=== PATIENT | male | born 1965 | race African-American/Black ===

== ENCOUNTER 2025-06-02 13:58 | Inpatient (IN) | payer MEDICAID, OTHER ==
[~2025-06-02] VITALS: Ht 177.8 cm; Wt 95.8 kg
--- NOTE | 2025-06-02 14:19 | ED.PDOC ---
General HPI Comments 59 year old male PMHx seizure, CVA RT sided deficits, HTN presents to the ED with a chief complaint of hematuria onset today (06/02/25). Per EMS, patient had prostate surgery on 05/21/25, this morning began experiencing blood in urine. Home health nurse called 911 due to increased weakness and filling about 2 bags of urine, with blood. He is currently on eliquis. Patient is a poor historian. No other symptoms or modifying factors present at this time. Chief Complaint: Urinary Time Seen by MD: 14:10 Reviewed notes: Medications, Allergies Allergies: Coded Allergies: Penicillins (Verified Allergy, Unknown, 06/02/25) Information Source: Patient, Emergency Med Personnel Mode of Arrival: EMS Severity: Moderate Timing: Hours Duration: Since onset Prehospital treatment: None Onset: Spontaneous Symptoms: Hematuria History of: Other Location: None Penile discharge: None Modifying factors: None associated signs and symptoms: Hematuria Past Medical History PAST MEDICAL HISTORY: CVA (RT sided deficts), HTN, Seizures Surgical History (Other): prostate surgery Family History Family History: Reviewed,noncontributory to illness, No family hx of Cancer, No family hx of DM, No family hx of Heart dewayne, No family hx of HTN, No family hx ofKidney dewayne, No family hx of Liver dewayne, No family hx of Lung dewayne, No family hx of Stroke Social History Smoker: Non-Smoker Alcohol: Denies ETOH Use Drugs: Denies Drug Use Lives In: Home Constitutional: reports: weakness; denies: chills, diaphoresis, fatigue, fever, malaise, sweats, others EENTM: denies: blurred vision, double vision, ear bleeding, ear discharge, ear drainage, ear pain, ear ringing, eye pain, eye redness, hearing loss, mouth pain, mouth swelling, nasal discharge, nose bleeding, nose congestion, nose pain, photophobia, tearing, throat pain, throat swelling, voice changes, others Respiratory: denies: cough, hemoptysis, orthopnea, SOB at rest, shortness of breath, SOB with excertion, stridor, wheezing, others Cardiovascular: denies: chest pain, dizzy spells, diaphoresis, Dyspnea on exertion, edema, irregular heart beat, left arm pain, lightheadedness, palpitations, PND, syncope, others Gastrointestinal: denies: abdomen distended, abdominal pain, blood streaked bowels, constipated, diarrhea, dysphagia, difficulty swallowing, hematemesis, melena, nausea, poor appetite, poor fluid intake, rectal bleeding, rectal pain, vomiting, others Genitourinary: reports: hematuria; denies: burning, dysuria, flank pain, frequency, incontinence, penile discharge, penile sore, pain, testicle pain, testicle swelling, urgency, others Neurological: reports: weakness; denies: dizziness, fainting, headache, left sided numbness, left sided weakness, numbness, paresthesia, pre-existing deficit, right sided numbness, right sided weakness, seizure, speech problems, tingling, tremors, others Musculoskeletal: denies: back pain, gout, joint pain, joint swelling, muscle pain, muscle stiffness, neck pain, others Integumetry: denies: bruises, change in color, change in hair/nails, dryness, laceration, lesions, lumps, rash, wounds, others Allergic/Immunocompromised: denies: Difficulty Healing, Frequent Infections, Hives, Itching, others Hematologic/Lymphatic: denies: anemia, blood clots, easy bleeding, easy bruising, swollen glands, others Endocrine: denies: excessive hunger, excessive sweating, excessive thirst, excessive urination, flushing, intolerance to cold, intolerance to heat, unexplained weight gain, unexplained weight loss, others Psychiatric: denies: anxiety, bipolar disorder, depression, hopeless, panic disorder, schizophrenia, sleepless, suicidal, others All Other Systems: Reviewed and Negative Physical Exam General Appearance: No Apparent Distress, Normal HEENT: Normal ENT Inspection, Pharynx Normal, TMs Normal Neck: Full Range of Motion, Non-Tender, Normal, Normal Inspection Respiratory: Chest Non-Tender, Lungs Clear, No Accessory Muscle Use, No Respiratory Distress, Normal Breath Sounds Cardiovascular: No Edema, No JVD, No Murmur, No Gallop, Normal Peripheral Pulses, Regular Rate/Rhythm Breast Exam: Deferred Gastrointestinal: No Organomegaly, Non Tender, No Pulsatile Mass, Normal Bowel Sounds, Soft Genitalia: Deferred Pelvic: Deferred Rectal: Deferred Extremities: No calf tenderness, Normal capillary refill, Normal inspection, Normal range of motion, Non-tender, No pedal edema Musculoskeletal : Apperance: Normal 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 Was a procedure done?: No Differential Diagnosis Kidney stone (Female): N/A Kidney stone (Male): N/A Penile/Scrotal: N/A Urinary Problem (Male): Urethritis, UTI Urinary Problem (Female): N/A X-Ray, Labs, Meds, VS Vital Signs Date Time Temp Pulse Resp B/P (MAP) Pulse Ox O2 Delivery O2 Flow Rate FiO2 06/02/25 16:54 98.2 67 19 114/71 (85) 96 98.2 06/02/25 14:01 98.6 77 16 119/75 95 98.6 Lab Test 06/02/25 16:40 06/02/25 14:50 06/02/25 14:08 Range/Units Prothrombin Time Pending Prothrombin Time INR Pending Activated Partial Thromboplast Time Pending White Blood Count 5.8 4.4-10.8 10^3/uL Red Blood Count 4.75 4.5-5.90 10^6/uL Hemoglobin 13.0 L 13.5-17.5 g/dL Hematocrit 40.4 L 41.0-53.0 % Mean Corpuscular Volume 85.1 80.0-100.0 fL Mean Corpuscular Hemoglobin 27.4 L 28.0-32.0 pg Mean Corpuscular Hemoglobin Concent 32.2 32.0-36.0 g/dL Red Cell Distribution Width 16.4 H 11.8-14.3 % Platelet Count 155 140-450 10^3/uL Mean Platelet Volume 9.0 6.9-10.8 fL Neutrophils (%) (Auto) 65.8 37.0-80.0 % Lymphocytes (%) (Auto) 26.7 10.0-50.0 % Monocytes (%) (Auto) 4.6 0.0-12.0 % Eosinophils (%) (Auto) 2.2 0.0-7.0 % Basophils (%) (Auto) 0.7 0.0-2.0 % Neutrophils # (Auto) 3.8 1.6-8.6 10 ^3/uL Lymphocytes # (Auto) 1.6 0.4-5.4 10 ^3/uL Monocytes # (Auto) 0.3 0-1.3 10 ^3/uL Eosinophils # (Auto) 0.1 0-0.8 10 ^3/uL Basophils # (Auto) 0 0-0.2 10 ^3/uL Nucleated Red Blood Cells 0.1 % Sodium Level 138 136-145 mmol/L Potassium Level 3.3 L 3.5-5.1 mmol/L Chloride Level 102 98-107 mmol/L Carbon Dioxide Level 26 20-31 mmol/L Anion Gap 10 5-15 Blood Urea Nitrogen 9 9-23 mg/dL Creatinine 1.27 0.700-1.30 mg/dL Glomerular Filtration Rate Calc 66 >90 mL/min BUN/Creatinine Ratio 7.1 L 10.0-20.0 Serum Glucose 97 74-106 mg/dL Calcium Level 9.3 8.7-10.4 mg/dL Troponin I High Sensitivity 8 </=54 ng/L Urine Color Light-red Yellow Urine Clarity Turbid H Clear Urine pH 6.0 5.0-9.0 Urine Specific [place] 1.006 1.001-1.035 Urine Protein Trace H Negative Urine Ketones Negative Negative Urine Blood 3+ H Negative /uL Urine Nitrite Negative Negative Urine Bilirubin Negative Negative Urine Urobilinogen Normal Negative mg/dL Urine Leukocyte Esterase 3+ Negative /uL Urine RBC 4941 0 - 3 /hpf Urine Microscopic WBC 63 H 0-3 /HPF Urine Squamous Epithelial Cells None seen <5 /hpf Urine Bacteria Few H None Seen /hpf Urine Mucus Few None Seen Urine Glucose Normal Normal mg/dL Time of 1ST Reevaluation: 14:40 Reevaluation 1ST: Unchanged Patient Education/Counseling: Diagnosis, Treatment, Prognosis Family Education/Counseling: No Family Present SEPSIS Sepsis Screen Physician Orders PTPTT (06/02/25 14:08) Chest Portable (06/02/25 14:20) Vital Signs Date Time Temp Pulse Resp B/P (MAP) Pulse Ox O2 Delivery O2 Flow Rate FiO2 06/02/25 16:54 98.2 67 19 114/71 (85) 96 98.2 06/02/25 14:01 98.6 77 16 119/75 95 98.6 Laboratory Tests Test 06/02/25 14:50 White Blood Count 5.8 10^3/uL (4.4-10.8) Departure 1 Departure Time of Disposition: 17:05 (Patient with worsening hematuria and lower abdominal pain after recent prostate surgery. We will admit patient for further workup and expert consultation) Impression: Primary Impression: Hematuria Qualified Codes: R31.0 - Gross hematuria Additional Impression: Lower abdominal pain Disposition: 09 ADMITTED INPATIENT Admit to: Med Surg Condition: Serious Critical Care Note Critical Care Time?: No Stability Stability form required: No I personally scribed for PILY SUAREZ MD ([email or web address]) on 06/02/25 at 14:19. Electronically submitted by Amelia Delgadillo ([email or web address]). I personally scribed for PILY SUAREZ MD ([email or web address]) on 06/02/25 at 14:23. Electronically submitted by Amelia Delgadillo ([email or web address]). PILY SUAREZ MD Jun 02, 2025 14:19
--- NOTE | 2025-06-02 15:01 | DVH ---
AP portable chest CLINICAL INDICATION: hematuria, weakness FINDINGS: Heart size slightly enlarged with a left ventricular configuration. Aorta tortuous. No inf iltrates or effusions IMPRESSION: 1. No acute cardiopulmonary pathology
[2025-06-02 15:03] LABS: Hematocrit 40.4 % (41.0-53.0); Hemoglobin 13.0 g/dL (13.5-17.5); Mean Corpuscular Hemoglobin 27.4 pg (28.0-32.0); Mean Corpuscular Volume 85.1 fL (80.0-100.0); Nucleated Red Blood Cells % 0.1 %
[2025-06-02 15:23] LABS: Chloride 102 mmol/L (98-107); Sodium 138 mmol/L (136-145)
[2025-06-02 15:24] LABS: Anion Gap 10 (5-15); Calcium 9.3 mg/dL (8.7-10.4); Carbon Dioxide 26 mmol/L (20-31)
[2025-06-02 15:25] LABS: Potassium 3.3 mmol/L (3.5-5.1)
[2025-06-02 15:29] LABS: BUN/Creatinine Ratio 7.1 (10.0-20.0); Glucose 97 mg/dL (74-106)
[2025-06-02 15:35] LABS: Blood Urea Nitrogen 9 mg/dL (9-23)
[2025-06-02 15:38] LABS: Urine Protein, UAD TRACE (Negative)
[2025-06-02 17:15] LABS: INR 1.07 (0.9-1.15); Partial Thromboplastin Time 32.3 SEC (24.5-34.5); Prothrombin Time 11.3 sec (9.3-11.8)
[2025-06-02 18:47] VITALS: PULSE 61; O2SAT 96
[2025-06-02 19:25] VITALS: PULSE 64; RESP 16; O2SAT 98
[2025-06-02] MEDS ORDERED: ONDANSETRON HCL 4 MG/2 ML VIAL IV PRN (19:45)
[2025-06-02] MEDS ORDERED: ACETAMINOPHEN 325 MG TAB PO PRN (19:45)
[2025-06-02] MEDS ORDERED: HYDROcodone-ACET 5/325MG TAB PO PRN (19:45)
--- NOTE | 2025-06-02 20:16 | DVH ---
EXAM: CT CT AB PEL WO CON-NO ORAL OR IV INDICATION: hematuria TECHNIQUE: Volumetric multidetector CT images of the abdomen and pelvis were obtained without contras t. All CT scans at this facility use dose modulation, iterative reconstruction, and/or weight based d osing when appropriate to reduce radiation dose to as low as reasonably achievable. COMPARISON: None FINDINGS: [LOWER CHEST]: The partially visualized lung bases are clear without a pleural effusion. The cardiac size is normal without pericardial effusion. trace atelectasis in the right lung base. Prominent para -aortic presumed lymph node versus mass measuring 3 x 2.[address] of the chest wit h contrast. [LIVER]: Normal hepatic size without suspicious focal lesion. [GALLBLADDER AND BILIARY TREE]: No cholelithiasis. [SPLEEN]: Unremarkable. [PANCREAS]: Unremarkable. [ADRENAL GLANDS]: Unremarkable [KIDNEYS]: No hydronephrosis. Large abnormal right posterior kidney soft tissue attenuating mass benitez uring 5.4 x 4.8 cm concerning for renal cell carcinoma. Too small to characterize left exophytic kid efrain lesion measuring 0.7 cm. [BLADDER]: Decompressed. Possible area along the wall measuring 9 mm along the left anterolateral bl adder. Circumferential bladder wall thickening. [REPRODUCTIVE ORGANS]: Mild to moderate prostatomegaly. [BOWEL/MESENTERY]: Stomach is normal. No CT evidence of bowel obstruction. [id number] stool bur den with large amount of stool distention rectum. Correlate for constipation [ASCITES]: Absent [LYMPHADENOPATHY]: Abnormal retroperitoneal lymphadenopathy with dominant characteristic lymph node i n the retro caval station measuring 2.7 x 1.8 cm. [VASCULATURE]: No aneurysmal dilatation. [ABDOMINAL WALL]: Small fat containing left inguinal hernia [MUSCULOSKELETAL]: No acute fracture or aggressive focal osseous lesion. Multifocal degenerative wade ge of the visualized spine. left femoral hardware. Sclerosis /sclerotic lesion of S1 potentially bone island. No visualized lytic lesion however inconspicuous sclerotic lesions along bilateral posterior iliac bones concerning for metastatic disease (2-73). IMPRESSION: 1. Large right posterior kidney mass concerning for renal cell carcinoma. 2. Abnormal retroperitoneal lymphadenopathy concerning for metastatic disease. 3. Circumferential bladder wall thickening and possible area of mass along the left anterolateral omar dder wall. 4. Inconspicuous sclerotic lesions along bilateral posterior iliac bones concerning for metastatic di sease.
[2025-06-02] MEDS: POTASSIUM CHL 20 Meq TABLET PO ONE (20:23)
[2025-06-02] MEDS: ATORVASTATIN 20 MG TAB PO SCH (22:17)
[2025-06-02] MEDS: levETIRAcetam 500 MG TAB PO SCH (22:17)
--- NOTE | 2025-06-02 23:38 | DVHHP2 ---
History of Present Illness Reason for Visit: Blood in the urine History of Present Illness 59-year-old male presents for evaluation of bloody urine. 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 He reports a one day history of noticing blood in his urine. He reports undergoing prostate surg latia on 05/21/2025. Reports increased weakness with fatigue. Patient is currently on Eliquis. No chest pain or palpitations. Past Medical History CVA, hypertension, seizures Past Surgical History Prostate surgery Family History Noncontributory Smoke: No ALCOHOL: none Drugs: None Lives: with Family Review of Systems Review of Systems Review of systems are currently negative otherwise addressed in HPI. Allergies: Coded Allergies: Penicillins (Verified Allergy, Unknown, 06/02/25) Medications Current Medications Medications Dose Ordered Sig/Perlita Route Start Time Stop Time Status Last Admin Dose Admin Levetiracetam 500 mg BID PO 06/02/25 22:00 06/02/25 22:17 500 MG Hydralazine HCl 25 mg Q8HR PO 06/02/25 22:00 Levothyroxine Sodium 100 mcg QAM@0600 PO 06/03/25 06:00 Atorvastatin Calcium 40 mg HS PO 06/02/25 22:00 06/02/25 22:17 40 MG Allopurinol 100 mg DAILY PO 06/03/25 10:00 Ceftriaxone Sodium 50 ml @ 100 mls/hr DAILY@09 IV 06/03/25 09:00 Acetaminophen/ Hydrocodone Bitart 1 tab Q4HP PRN PO 06/02/25 19:45 Ondansetron HCl 4 mg Q4HP PRN IV 06/02/25 19:45 Acetaminophen 650 mg Q6HP PRN PO 06/02/25 19:45 Exam Vital Signs Vital Signs Date Time Temp Pulse Resp B/P (MAP) Pulse Ox O2 Delivery O2 Flow Rate FiO2 06/02/25 22:00 107/71 06/02/25 19:25 64 16 98 Nasal Cannula* 2 28 06/02/25 19:25 98.0 98.0 Exam Gen: 59-year-old male in mild distress. Skin: Warm, dry, normal color and texture, no rash. HEENT: Normocephalic atraumatic, mucous membranes moist and pink. Neck: Cervical and supraclavicular nodes normal without enlargement, trachea is midline, thyroid gland is normal without masses. Pulmonary: Clear to auscultation and percussion bilaterally. Cardiac: Regular rate and rhythm. No murmur Abdomen: Soft, nontender, nondistended, bowel sounds present all 4 quadrants, no guarding, no rigidity, no organomegaly. Extremities: No cyanosis, clubbing, no edema Neuro: Cranial nerves II through XII grossly intact, normal affect and speech, no focal motor deficits. Labs/Xrays ORDERING PHYSICIAN: PILY SUAREZ MD PROCEDURE(s): CXRP - CHEST PORTABLE REASON: hematuria, weakness ORDER NUMBER(s): [id number], ACCESSION NUMBER(s): [id number] AP portable chest CLINICAL INDICATION: hematuria, weakness FINDINGS: Heart size slightly enlarged with a left ventricular configuration. Aorta tortuous. No infiltrates or effusions IMPRESSION: 1. No acute cardiopulmonary pathology [facility]ING PHYSICIAN[facility] PROCED[facility]s): ABPL - CT AB PEL WO CON-NO ORAL OR IV REASON: hematuria ORDER NUMBER(s): [id number], ACCESSION NUMBER(s): [id number] EXAM: CT CT AB PEL WO CON-NO ORAL OR IV INDICATION: hematuria TECHNIQUE: Volumetric multidetector CT images of the abdomen and pelvis were obtained without contrast. All CT scans at this facility use dose modulation, iterative reconstruction, and/or weight based dosing when appropriate to reduce radiation dose to as low as reasonably achievable. COMPARISON: None FINDINGS: [LOWER CHEST]: The partially visualized lung bases are clear without a pleural effusion. The cardiac size is normal without pericardial effusion. trace atelectasis in the right lung base. Prominent para-aortic presumed lymph node versus mass measuring 3 x 2.[address] of the chest with contrast. [LIVER]: Normal hepatic size without suspicious focal lesion. [GALLBLADDER AND BILIARY TREE]: No cholelithiasis. [SPLEEN]: Unremarkable. [PANCREAS]: Unremarkable. [ADRENAL GLANDS]: Unremarkable [KIDNEYS]: No hydronephrosis. Large abnormal right posterior kidney soft tissue attenuating mass measuring 5.4 x 4.8 cm concerning for renal cell carcinoma. Too small to characterize left exophytic kidney lesion measuring 0.7 cm. [BLADDER]: Decompressed. Possible area along the wall measuring 9 mm along the left anterolateral bladder. Circumferential bladder wall thickening. [REPRODUCTIVE ORGANS]: Mild to moderate prostatomegaly. [BOWEL/MESENTERY]: Stomach is normal. No CT evidence of bowel obstruction. [id number] stool burden with large amount of stool distention rectum. Correlate for constipation [ASCITES]: Absent [LYMPHADENOPATHY]: Abnormal retroperitoneal lymphadenopathy with dominant characteristic lymph node in the retro caval station measuring 2.7 x 1.8 cm. [VASCULATURE]: No aneurysmal dilatation. [ABDOMINAL WALL]: Small fat containing left inguinal hernia [MUSCULOSKELETAL]: No acute fracture or aggressive focal osseous lesion. Multifocal degenerative change of the visualized spine. left femoral hardware. Sclerosis /sclerotic lesion of S1 potentially bone island. No visualized lytic lesion however inconspicuous sclerotic lesions along bilateral posterior iliac bones concerning for metastatic disease (2-73). IMPRESSION: 1. Large right posterior kidney mass concerning for renal cell carcinoma. 2. Abnormal retroperitoneal lymphadenopathy concerning for metastatic disease. 3. Circumferential bladder wall thickening and possible area of mass along the left anterolateral bladder wall. 4. Inconspicuous sclerotic lesions along bilateral posterior iliac bones concerning for metastatic disease. ATED BY: KISHAN PHELAN MD Labs Test 06/02/25 16:40 06/02/25 14:50 06/02/25 14:08 Range/Units Prothrombin Time 11.3 9.3-11.8 sec Prothrombin Time INR 1.07 0.9-1.15 Activated Partial Thromboplast Time 32.3 24.5-34.5 SEC White Blood Count 5.8 4.4-10.8 10^3/uL Red Blood Count 4.75 4.5-5.90 10^6/uL Hemoglobin 13.0 L 13.5-17.5 g/dL Hematocrit 40.4 L 41.0-53.0 % Mean Corpuscular Volume 85.1 80.0-100.0 fL Mean Corpuscular Hemoglobin 27.4 L 28.0-32.0 pg Mean Corpuscular Hemoglobin Concent 32.2 32.0-36.0 g/dL Red Cell Distribution Width 16.4 H 11.8-14.3 % Platelet Count 155 140-450 10^3/uL Mean Platelet Volume 9.0 6.9-10.8 fL Neutrophils (%) (Auto) 65.8 37.0-80.0 % Lymphocytes (%) (Auto) 26.7 10.0-50.0 % Monocytes (%) (Auto) 4.6 0.0-12.0 % Eosinophils (%) (Auto) 2.2 0.0-7.0 % Basophils (%) (Auto) 0.7 0.0-2.0 % Neutrophils # (Auto) 3.8 1.6-8.6 10 ^3/uL Lymphocytes # (Auto) 1.6 0.4-5.4 10 ^3/uL Monocytes # (Auto) 0.3 0-1.3 10 ^3/uL Eosinophils # (Auto) 0.1 0-0.8 10 ^3/uL Basophils # (Auto) 0 0-0.2 10 ^3/uL Nucleated Red Blood Cells 0.1 % Sodium Level 138 136-145 mmol/L Potassium Level 3.3 L 3.5-5.1 mmol/L Chloride Level 102 98-107 mmol/L Carbon Dioxide Level 26 20-31 mmol/L Anion Gap 10 5-15 Blood Urea Nitrogen 9 9-23 mg/dL Creatinine 1.27 0.700-1.30 mg/dL Glomerular Filtration Rate Calc 66 >90 mL/min BUN/Creatinine Ratio 7.1 L 10.0-20.0 Serum Glucose 97 74-106 mg/dL Calcium Level 9.3 8.7-10.4 mg/dL Troponin I High Sensitivity 8 </=54 ng/L Urine Color Light-red Yellow Urine Clarity Turbid H Clear Urine pH 6.0 5.0-9.0 Urine Specific [place] 1.006 1.001-1.035 Urine Protein Trace H Negative Urine Ketones Negative Negative Urine Blood 3+ H Negative /uL Urine Nitrite Negative Negative Urine Bilirubin Negative Negative Urine Urobilinogen Normal Negative mg/dL Urine Leukocyte Esterase 3+ Negative /uL Urine RBC 4941 0 - 3 /hpf Urine Microscopic WBC 63 H 0-3 /HPF Urine Squamous Epithelial Cells None seen <5 /hpf Urine Bacteria Few H None Seen /hpf Urine Mucus Few None Seen Urine Glucose Normal Normal mg/dL SEPSIS Sepsis Screen Date sepsis recognized/suspect: Jun 02, 2025 Time Sepsis recognized/suspect: 1925 Recent Procedure: Yes On Antibiotic Therapy: Yes Respiratory Rate >20: No Heart Rate >90: No Temp<36 C (96.8 F) or >38.3 C: No SBP <90 or MAP <65 mmHG: No New Acute Mental Status Change: No Is the patient on CPAP, BIPAP,: No Physician Orders * Urology Consult (06/02/25 17:06) Ct Ab Pel Wo Con-No Oral Or Iv (06/02/25 19:42) Levetiracetam Tablet (Keppra Tablet) (06/02/25 22:00) Hydralazine Hcl Tablet (Apresoline Table (06/02/25 22:00) Levothyroxine Tablet (Synthroid Tablet) (06/03/25 06:00) Atorvastatin (Lipitor) (06/02/25 22:00) Allopurinol Tablet (Zyloprim Tablet) (06/03/25 10:00) Urine Bacterial Culture (06/02/25 19:42) Ceftriaxone 1gm/50ml (Rocephin) (06/03/25 09:00) Basic Metabolic Panel (06/03/25 04:00) Admit (06/02/25 19:42) Hydrocodone-Acet 5/325mg Tab ([place] 5/32 (06/02/25 19:45) Ondansetron Hcl (Zofran) (06/02/25 19:45) Complete Blood Count (06/03/25 04:00) Cardiac Diet-2gna,Lofat,Lochol (06/03/25 Breakfast) Condition: Stable (06/02/25 19:42) Acetaminophen Tablet (Tylenol Tablet) (06/02/25 19:45) Bedrest With Bathroom Privileg (06/02/25 19:42) Sequential Compression Device (06/02/25 ) Vital Signs Date Time Temp Pulse Resp B/P (MAP) Pulse Ox O2 Delivery O2 Flow Rate FiO2 06/02/25 22:00 107/71 06/02/25 19:25 64 16 98 Nasal Cannula* 2 28 06/02/25 19:25 98.0 64 16 112/81 (91) 98 98.0 06/02/25 18:47 61 96 Nasal Cannula* 2 28 06/02/25 18:00 58 19 112/81 (91) 98 06/02/25 16:54 98.2 67 19 114/71 (85) 96 98.2 Laboratory Tests Test 06/02/25 14:50 White Blood Count 5.8 10^3/uL (4.4-10.8) Medications Medications Dose Ordered Sig/Perlita Route Start Time Stop Time Status Last Admin Dose Admin Atorvastatin Calcium 40 mg HS PO 06/02/25 22:00 06/02/25 22:17 40 MG Ceftriaxone Sodium 50 ml @ 100 mls/hr ONCE ONCE IV 06/02/25 19:45 06/02/25 20:14 DC 06/02/25 20:23 100 MLS/HR Levetiracetam 500 mg BID PO 06/02/25 22:00 06/02/25 22:17 500 MG Potassium Chloride 20 meq ONCE ONCE PO 06/02/25 19:45 06/02/25 20:02 DC 06/02/25 20:23 20 MEQ Assessment/Plan Assessment/Plan Assessment Hematuria Complicated UTI History of seizures Renal mass ? Metastatic disease History of CVA with right-sided deficits Plan Admit the [facility] to [facility] to the hospitalist Urology consultation Hematology consult Roceparia Resume home medications Hold Eliquis Continue treatment per orders. Plan discussed with: Patient My Orders Orders - NADER BATISTA Procedure Category Date Status Time Ct Ab Pel Wo Con-No CT 06/02/25 Resulted Oral Or Iv 19:42 Levetiracetam Tablet PHA 06/02/25 In Process (Keppra Tablet) 22:00 Hydralazine Hcl PHA 06/02/25 In Process Tablet (Apresoline 22:00 Levothyroxine Tablet PHA 06/03/25 In Process (Synthroid Tablet) 06:00 Atorvastatin (Lipitor) PHA 06/02/25 In Process 22:00 Allopurinol Tablet PHA 06/03/25 In Process (Zyloprim Tablet) 10:00 Urine Bacterial GEOVANI 06/02/25 In Process Culture 19:42 Ceftriaxone 1gm/50ml PHA 06/03/25 In Process (Rocephin) 09:00 Basic Metabolic Panel LAB 06/03/25 Verified 04:00 Admit ADMIT 06/02/25 Transmitted 19:42 Hydrocodone-Acet PHA 06/02/25 In Process 5/325mg Tab ([place] 19:45 Ondansetron Hcl PHA 06/02/25 In Process (Zofran) 19:45 Complete Blood Count LAB 06/03/25 Verified 04:00 Cardiac DIET 06/03/25 Transmitted Diet-2gna,Lofat,Lochol Breakfast Condition: Stable AYDIN 06/02/25 In Process 19:42 Acetaminophen Tablet PHA 06/02/25 In Process (Tylenol Tablet) 19:45 Bedrest With Bathroom AYDIN 06/02/25 In Process Privileg 19:42 Sequential [facility] 06/02/25 In Process Compression Device Date of Service: Jun 02, 2025 Billing Provider: NADER BATITSA Common Visit Codes: [id number] INP/OBS CARE (HIGH) NADER BATISTA Jun 02, 2025 23:38
[2025-06-02 23:56] LABS: Hematocrit 35.4 % (41.0-53.0); Hemoglobin 11.8 g/dL (13.5-17.5)
[2025-06-03 05:00] VITALS: BP 111/73; PULSE 66; RESP 18; TEMP 97.8; O2SAT 99
[2025-06-03 05:48] LABS: Chloride 103 mmol/L (98-107); Potassium 3.5 mmol/L (3.5-5.1); Sodium 140 mmol/L (136-145)
[2025-06-03 05:49] LABS: Anion Gap 8 (5-15); Carbon Dioxide 29 mmol/L (20-31)
[2025-06-03 05:51] LABS: Calcium 8.7 mg/dL (8.7-10.4)
[2025-06-03 05:54] LABS: Glucose 89 mg/dL (74-106)
[2025-06-03 05:55] LABS: BUN/Creatinine Ratio 7.3 (10.0-20.0); Blood Urea Nitrogen 10 mg/dL (9-23)
[2025-06-03] MEDS: LEVOTHYROXINE SODIUM 100 MCG TAB PO SCH (06:18)
[2025-06-03 07:05] LABS: Hematocrit 33.0 % (41.0-53.0); Hemoglobin 11.2 g/dL (13.5-17.5); Mean Corpuscular Hemoglobin 28.0 pg (28.0-32.0); Mean Corpuscular Volume 82.6 fL (80.0-100.0); Nucleated Red Blood Cells % 0.1 %
[2025-06-03 07:30] VITALS: PULSE 60; RESP 17; O2SAT 100
--- NOTE | 2025-06-03 08:57 | DVHINCON2 ---
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 He underwent Aquablation prostatectomy on 05/21/2025 at [facility]. Subsequently he continues to have gross hematuria and presents to the ER. 59 year old male PMHx seizure, CVA RT sided deficits, HTN presents to the ED with a chief complaint of hematuria onset today (06/02/25). Per EMS, patient had prostate surgery on 05/21/25, this morning began experiencing blood in urine. Home health nurse called 911 due to increased weakness and filling about 2 bags of urine, with blood. He is currently on eliquis. Patient is a poor historian. No other symptoms or modifying factors present at this time. Chief Complaint: Urinary Reviewed notes: Medications, Allergies Allergies: Coded Allergies: Penicillins (Verified Allergy, Unknown, 06/02/25) Information Source: Patient, Emergency Med Personnel Mode of Arrival: EMS Severity: Moderate Timing: Hours Duration: Since onset Prehospital treatment: None Onset: Spontaneous Symptoms: Hematuria History of: Other Location: None Penile discharge: None Modifying factors: None associated signs and symptoms: Hematuria Past Medical History Hemiplegia secondary to stroke BPH CVA (RT sided deficts), HTN, Seizures Past Surgical History Status post Aquablation prostatectomy on 05/21/2025 Allergies: Coded Allergies: Penicillins (Verified Allergy, Unknown, 06/02/25) Current Medications Current Medications Medications (Trade) Dose Ordered Sig/Perlita Route PRN Reason Start Time Stop Time Status Last Admin Levetiracetam (Keppra Tablet) 500 mg BID PO 06/02/25 22:00 06/02/25 22:17 Hydralazine HCl (Apresoline Tablet) 25 mg Q8HR PO 06/02/25 22:00 Levothyroxine Sodium (Synthroid Tablet) 100 mcg QAM@0600 PO 06/03/25 06:00 06/03/25 06:18 Atorvastatin Calcium (Lipitor) 40 mg HS PO 06/02/25 22:00 06/02/25 22:17 Allopurinol (Zyloprim Tablet) 100 mg DAILY PO 06/03/25 10:00 Ceftriaxone Sodium 50 ml @ 100 mls/hr DAILY@09 IV 06/03/25 09:00 Acetaminophen/ Hydrocodone Bitart ([place] 5/325MG Tab) 1 tab Q4HP PRN PO MODERATE PAIN (4-6 PAIN SCALE) 06/02/25 19:45 Ondansetron HCl (Zofran) 4 mg Q4HP PRN IV NAUSEA / VOMITING 06/02/25 19:45 Acetaminophen (Tylenol Tablet) 650 mg Q6HP PRN PO PAIN SCALE 1-3 OR TEMP>100.4 06/02/25 19:45 Review of Systems Gross hematuria Vital Signs Vital Signs Date Time Temp Pulse Resp B/P (MAP) Pulse Ox O2 Delivery O2 Flow Rate FiO2 06/03/25 07:30 97.8 60 17 114/74 (87) 100 97.8 06/03/25 07:30 Nasal Cannula* 2 28 Physical Exam General Appearance: No Apparent Distress, Normal HEENT: Normal ENT Inspection, Pharynx Normal, TMs Normal Neck: Full Range of Motion, Non-Tender, Normal, Normal Inspection Respiratory: Chest Non-Tender, Lungs Clear, No Accessory Muscle Use, No Respiratory Distress, Normal Breath Sounds Cardiovascular: No Edema, No JVD, No Murmur, No Gallop, Normal Peripheral Pu lses, Regular Rate/Rhythm Breast Exam: Deferred Gastrointestinal: No Organomegaly, Non Tender, No Pulsatile Mass, Normal Bowel Sounds, Soft Genitalia: Deferred Pelvic: Deferred Rectal: Deferred Extremities: No calf tenderness, Normal capillary refill, Normal inspection, Normal range of motion, Non-tender, No pedal edema Musculoskeletal : Apperance: Normal Neurologic: Alert, manufacturing engineer II-XII nml as Tested, No Motor Deficits, Normal Affect, Normal Mood, No Sensory Deficits Cerebellar Function: Normal Reflexes: Normal Skin: Dry, Normal Color, Warm Lymphatic: No Adenopathy Labs/Diagnostic Data Labs Test 06/03/25 06:49 06/03/25 04:54 06/02/25 16:40 06/02/25 14:50 Range/Units White Blood Count 5.5 4.4-10.8 10^3/uL Red Blood Count 3.99 L 4.5-5.90 10^6/uL Hemoglobin 11.2 L 13.5-17.5 g/dL Hematocrit 33.0 L 41.0-53.0 % Mean Corpuscular Volume 82.6 80.0-100.0 fL Mean Corpuscular Hemoglobin 28.0 28.0-32.0 pg Mean Corpuscular Hemoglobin Concent 33.9 32.0-36.0 g/dL Red Cell Distribution Width 16.2 H 11.8-14.3 % Platelet Count 172 140-450 10^3/uL Mean Platelet Volume 8.9 6.9-10.8 fL Neutrophils (%) (Auto) 60.5 37.0-80.0 % Lymphocytes (%) (Auto) 28.3 10.0-50.0 % Monocytes (%) (Auto) 7.2 0.0-12.0 % Eosinophils (%) (Auto) 3.3 0.0-7.0 % Basophils (%) (Auto) 0.7 0.0-2.0 % Neutrophils # (Auto) 3.3 1.6-8.6 10 ^3/uL Lymphocytes # (Auto) 1.5 0.4-5.4 10 ^3/uL Monocytes # (Auto) 0.4 0-1.3 10 ^3/uL Eosinophils # (Auto) 0.2 0-0.8 10 ^3/uL Basophils # (Auto) 0 0-0.2 10 ^3/uL Nucleated Red Blood Cells 0.1 % Sodium Level 140 136-145 mmol/L Potassium Level 3.5 3.5-5.1 mmol/L Chloride Level 103 98-107 mmol/L Carbon Dioxide Level 29 20-31 mmol/L Anion Gap 8 5-15 Blood Urea Nitrogen 10 9-23 mg/dL Creatinine 1.37 H 0.700-1.30 mg/dL Glomerular Filtration Rate Calc 60 >90 mL/min BUN/Creatinine Ratio 7.3 L 10.0-20.0 Serum Glucose 89 74-106 mg/dL Calcium Level 8.7 8.7-10.4 mg/dL Prothrombin Time 11.3 9.3-11.8 sec Prothrombin Time INR 1.07 0.9-1.15 Activated Partial Thromboplast Time 32.3 24.5-34.5 SEC Troponin I High Sensitivity 8 </=54 ng/L Test 06/02/25 14:08 Range/Units Urine Color Light-red Yellow Urine Clarity Turbid H Clear Urine pH 6.0 5.0-9.0 Urine Specific [place] 1.006 1.001-1.035 Urine Protein Trace H Negative Urine Ketones Negative Negative Urine Blood 3+ H Negative /uL Urine Nitrite Negative Negative Urine Bilirubin Negative Negative Urine Urobilinogen Normal Negative mg/dL Urine Leukocyte Esterase 3+ Negative /uL Urine RBC 4941 0 - 3 /hpf Urine Microscopic WBC 63 H 0-3 /HPF Urine Squamous Epithelial Cells None seen <5 /hpf Urine Bacteria Few H None Seen /hpf Urine Mucus Few None Seen Urine Glucose Normal Normal mg/dL Assessment Persistent gross hematuria Plan/Recommendation Cystoscopy with clot evacuation and fulguration Plan discussed with: Patient, Other JESUS WISE MD Jun 03, 2025 08:57
[2025-06-03] MEDS ORDERED: AMLO1TAB22 PO (09:18)
[2025-06-03] MEDS ORDERED: CLON0.2D6 PO (09:18)
[2025-06-03] MEDS ORDERED: LEVO-849 PO (09:18)
[2025-06-03] MEDS ORDERED: HYDR25TA88 PO (09:18)
[2025-06-03] MEDS ORDERED: ATEN50TA PO (09:18)
[2025-06-03] MEDS ORDERED: BENA-36 PO (09:18)
[2025-06-03] MEDS ORDERED: FAMO20TA10 PO (09:18)
[2025-06-03] MEDS ORDERED: DOCU-94 PO (09:18)
[2025-06-03] MEDS ORDERED: LEVE500T40 PO (09:18)
[2025-06-03] MEDS ORDERED: LACT10SO3 PO (09:18)
[2025-06-03] MEDS ORDERED: CHOL20007 PO (09:18)
[2025-06-03] MEDS ORDERED: APIX5TAB PO (09:18)
[2025-06-03] MEDS ORDERED: FOLI-119 PO (09:18)
[2025-06-03] MEDS: ALLOPURINOL 100 MG TAB PO SCH (10:29)
[2025-06-03 12:58] VITALS: BP 132/68; PULSE 68; RESP 20; TEMP 97.9; O2SAT 96
[2025-06-03] MEDS ORDERED: ALBUAER3 IN (15:11)
[2025-06-03] MEDS ORDERED: APIX2.5T PO (15:11)
[2025-06-03] MEDS ORDERED: MAGN400T40 PO (15:11)
[2025-06-03] MEDS ORDERED: HYDR12.59 PO (15:11)
[2025-06-03] MEDS ORDERED: ALBU0.084 NEB (15:11)
[2025-06-03] MEDS ORDERED: BUDE1AER4 IN (15:11)
--- NOTE | 2025-06-03 16:56 | DVHPN2 ---
Subjective Patient denies any symptoms at this time. Reviewed: Care Plan, H&P, Labs, Medications Changes from previous H/P or p: No Changes General: Per HPI Objective Vitals Vital Signs Date Time Temp Pulse Resp B/P (MAP) Pulse Ox O2 Delivery O2 Flow Rate FiO2 06/03/25 12:58 97.9 68 20 132/68 (89) 96 97.9 06/03/25 12:40 Room Air* 0 21 Intake/Output Intake and Output 06/03/25 07:00 Output Total 450 ml Balance -450 ml Output Urine Total 450 ml General Appearance: Alert, Oriented X3, Cooperative, No acute distress HEENT: Atraumatic, PERRLA Lungs: Clear to auscultation, Normal air movement Cardiovascular: Normal S1, Normal S2 Abdomen: Normal bowel sounds, Soft, No tenderness, No hepatospenomegaly, No masses Genitourinary: No Apparent Abnormalities Musculoskeletal: Normal sensory function, Normal motor function Neuro: Normal gait, Normal speech Skin: Cyanosis, Dry, Intact Psych/Mental Status: Mental status NL, Mood NL Medications Current Medications Medications Dose Ordered Sig/Perlita Route Start Time Stop Time Status Last Admin Dose Admin Levetiracetam 500 mg BID PO 06/02/25 22:00 06/03/25 10:29 500 MG Hydralazine HCl 25 mg Q8HR PO 06/02/25 22:00 Levothyroxine Sodium 100 mcg QAM@0600 PO 06/03/25 06:00 06/03/25 06:18 100 MCG Atorvastatin Calcium 40 mg HS PO 06/02/25 22:00 06/02/25 22:17 40 MG Allopurinol 100 mg DAILY PO 06/03/25 10:00 06/03/25 10:29 100 MG Ceftriaxone Sodium 50 ml @ 100 mls/hr DAILY@09 IV 06/03/25 09:00 06/03/25 09:32 100 MLS/HR Acetaminophen/ Hydrocodone Bitart 1 tab Q4HP PRN PO 06/02/25 19:45 Ondansetron HCl 4 mg Q4HP PRN IV 06/02/25 19:45 Acetaminophen 650 mg Q6HP PRN PO 06/02/25 19:45 Sodium Chloride 1,000 ml @ 75 mls/hr [id number] IV 06/03/25 17:00 UNV Laboratory Results Laboratory Tests 06/03/25 04:54 06/03/25 06:49 Chemistry Test 06/03/25 04:54 Calcium Level 8.7 mg/dL (8.7-10.4) Urinalysis Test 06/02/25 14:08 Urine Color Light-red (Yellow) Urine Clarity Turbid (Clear) H Urine pH 6.0 (5.0-9.0) Urine Specific [place] 1.006 (1.001-1.035) Urine Protein Trace (Negative) H Urine Ketones Negative (Negative) Urine Blood 3+ /uL (Negative) H Urine Nitrite Negative (Negative) Urine Bilirubin Negative (Negative) Urine Urobilinogen Normal mg/dL (Negative) Urine Leukocyte Esterase 3+ /uL (Negative) Urine RBC 4941 /hpf (0 - 3) Urine Microscopic WBC 63 /HPF (0-3) H Urine Squamous Epithelial Cells None seen /hpf (<5) Urine Bacteria Few /hpf (None Seen) H Urine Mucus Few (None Seen) Urine Glucose Normal mg/dL (Normal) Labs and/or images reviewed: Labs reviewed by me, Image(s) reviewed by me Assessment/Plan Assessment/Plan Impression: -hematuria -complicated cystitis -recent Aquablation prostatectomy -? Right renal cell carcinoma -obesity -primary hypertension -history of CVA with craniotomy -acute kidney injury, vasomotor nephropathy Plan: -discussed case with Urology, patient may require transfer to higher level care for renal cell carcinoma -check ESR, CRP, LDH -possible cystoscopy with photovaporization -start IV hydration -antibiotic therapy with Rocephin -PUD prophylaxis, hold anticoagulation given hematuria -repeat labs in a.m. Total time spent with patient discussing and formulating plan of care: 35 minutes. This medical document was created using an electronic medical record system with [employer] dictation system. Although this document has been carefully reviewed, there may still be some phonetic and typographical errors. These areas are purely typographical due to imperfections of the software programs, and do not reflect any compromise in the patient's medical care. Plan discussed with: Patient, Other (RN) My Orders Orders - RHODA CAGLE NP Procedure Category Date Status Time Complete Blood Count LAB 06/04/25 Verified 04:00 Erythrocyte LAB 06/03/25 Transmitted Sedimentation Rate 16:50 C-Reactive Protein LAB 06/03/25 Transmitted 16:50 Lactate Dehydrogenase LAB 06/03/25 Transmitted 16:50 NS PHA 06/03/25 Transmitted 17:00 Date of Service: Jun 03, 2025 Billing Provider: RHODA CAGLE NP Common Visit Codes: [id number] INP/OBS CARE(HIGH) RHODA CAGLE NP Jun 03, 2025 16:56
[2025-06-03 17:00] VITALS: BP 128/77; PULSE 57; RESP 17; TEMP 97.1; O2SAT 95
[2025-06-03] MEDS: SODIUM CHLORIDE 0.9% 1,000 ML IV SCH (18:07)
[2025-06-03 20:00] VITALS: PULSE 77
[2025-06-03 21:00] VITALS: BP 127/84; PULSE 64; TEMP 98.7; O2SAT 95
[2025-06-04 00:50] VITALS: BP 130/86; PULSE 66; RESP 19; TEMP 98.1; O2SAT 94
[2025-06-04 04:57] VITALS: BP 111/70; PULSE 78; RESP 19; TEMP 98.1; O2SAT 95
[2025-06-04 07:19] LABS: Hematocrit 35.7 % (41.0-53.0); Hemoglobin 11.9 g/dL (13.5-17.5); Mean Corpuscular Hemoglobin 27.7 pg (28.0-32.0); Mean Corpuscular Volume 82.9 fL (80.0-100.0); Nucleated Red Blood Cells % 0.1 %
[2025-06-04 08:56] VITALS: BP 150/83; PULSE 74; RESP 18; TEMP 98.6; O2SAT 97
--- NOTE | 2025-06-04 10:43 | DVHPN2 ---
Subjective Patient denies any symptoms at this time. Reviewed: Care Plan, H&P, Labs, Medications Changes from previous H/P or p: No Changes General: Per HPI Objective Vitals Vital Signs Date Time Temp Pulse Resp B/P (MAP) Pulse Ox O2 Delivery O2 Flow Rate FiO2 06/04/25 08:56 98.6 74 18 150/83 (105) 97 98.6 06/04/25 08:00 Room Air* 0 21 Intake/Output Intake and Output 06/04/25 07:00 Intake Total 1450 ml Output Total 675 ml Balance 775 ml Intake Oral 700 ml IV Total 750 ml Output Urine Total 675 ml General Appearance: Alert, Oriented X3, Cooperative, No acute distress HEENT: Atraumatic, PERRLA Lungs: Clear to auscultation, Normal air movement Cardiovascular: Normal S1, Normal S2 Abdomen: Normal bowel sounds, Soft, No tenderness, No hepatospenomegaly, No masses Genitourinary: Other (Lakhani catheter continues to have hematuria) Musculoskeletal: Normal sensory function, Normal motor function Neuro: Normal gait, Normal speech Skin: Cyanosis, Dry, Intact Psych/Mental Status: Mental status NL, Mood NL Medications Current Medications Medications Dose Ordered Sig/Perlita Route Start Time Stop Time Status Last Admin Dose Admin Levetiracetam 500 mg BID PO 06/02/25 22:00 06/04/25 08:55 500 MG Hydralazine HCl 25 mg Q8HR PO 06/02/25 22:00 06/03/25 22:16 25 MG Levothyroxine Sodium 100 mcg QAM@0600 PO 06/03/25 06:00 06/03/25 06:18 100 MCG Atorvastatin Calcium 40 mg HS PO 06/02/25 22:00 06/03/25 22:17 40 MG Allopurinol 100 mg DAILY PO 06/03/25 10:00 06/04/25 08:56 100 MG Ceftriaxone Sodium 50 ml @ 100 mls/hr DAILY@09 IV 06/03/25 09:00 06/04/25 08:56 100 MLS/HR Acetaminophen/ Hydrocodone Bitart 1 tab Q4HP PRN PO 06/02/25 19:45 Ondansetron HCl 4 mg Q4HP PRN IV 06/02/25 19:45 Acetaminophen 650 mg Q6HP PRN PO 06/02/25 19:45 Sodium Chloride 1,000 ml @ 75 mls/hr [id number] IV 06/03/25 17:00 06/03/25 18:07 75 MLS/HR Laboratory Results Laboratory Tests 06/03/25 04:54 06/04/25 05:55 Urinalysis Test 06/02/25 14:08 Urine Color Light-red (Yellow) Urine Clarity Turbid (Clear) H Urine pH 6.0 (5.0-9.0) Urine Specific [place] 1.006 (1.001-1.035) Urine Protein Trace (Negative) H Urine Ketones Negative (Negative) Urine Blood 3+ /uL (Negative) H Urine Nitrite Negative (Negative) Urine Bilirubin Negative (Negative) Urine Urobilinogen Normal mg/dL (Negative) Urine Leukocyte Esterase 3+ /uL (Negative) Urine RBC 4941 /hpf (0 - 3) Urine Microscopic WBC 63 /HPF (0-3) H Urine Squamous Epithelial Cells None seen /hpf (<5) Urine Bacteria Few /hpf (None Seen) H Urine Mucus Few (None Seen) Urine Glucose Normal mg/dL (Normal) Labs and/or images reviewed: Labs reviewed by me, Image(s) reviewed by me Assessment/Plan Assessment/Plan Impression: -hematuria -complicated cystitis -recent Aquablation prostatectomy -? Right renal cell carcinoma -obesity -primary hypertension -history of CVA with craniotomy -acute kidney injury, vasomotor nephropathy Plan: -hematuria improving. We will clarify with Urology on plan with possible cystoscopy as well as transferred to higher level of care for renal cell carcinoma -check ESR, CRP, LDH -possible cystoscopy with -continue IV hydration -antibiotic therapy with Rocephin -PUD prophylaxis, hold anticoagulation given hematuria -repeat labs in a.m. Total time spent with patient discussing and formulating plan of care: 35 minutes. This medical document was created using an electronic medical record system with [employer] dictation system. Although this document has been carefully reviewed, there may still be some phonetic and typographical errors. These areas are purely typographical due to imperfections of the software programs, and do not reflect any compromise in the patient's medical care. Plan discussed with: Patient, Other (RN) My Orders Orders - RHODA CAGLE NP Procedure Category Date Status Time Sodium Chloride 0.9% PHA 06/03/25 In Process 17:00 Basic Metabolic Panel LAB 06/05/25 Verified 04:00 Complete Blood Count LAB 06/05/25 Verified 04:00 Date of Service: Jun 04, 2025 Billing Provider: RHODA CAGLE NP Common Visit Codes: [id number] INP/OBS CARE(HIGH) RHODA CAGLE NP Jun 04, 2025 10:43
[2025-06-04 13:00] VITALS: BP 154/76; PULSE 94; RESP 18; TEMP 98.6; O2SAT 99
[2025-06-04] MEDS: LACTULOSE 20Gm/30ML SOLN PO SCH (15:00)
--- NOTE | 2025-06-04 16:10 | DVHPN2 ---
Progress Note - Dictate Date Seen: Jun 04, 2025 Has the PT tested + for MRSA If YES, has PT been informed?: No Medical Necessity Reason Pt with a Central, PICC or Fol: Yes The following are medically ne: Jensen Catheter Reason for jensen catheter: Bladder Retention/Obstruc Medical Necessity Reason Patient underwent Aquablation prostatectomy on 05/21/2025 at [facility]. He has history of voiding dysfunction/rule urinary retention requiring suprapubic catheter was in 2019 following his CVA. Patient was admitted to [facility] for gross hematuria which has subsequently subsided. Jensen catheter remains in place. CT scan abdomen and pelvis however shows a large 5.4 cm posterior renal mass suspicious for renal cell carcinoma. He will need to undergo a right radical nephrectomy at higher level of care Subjective Patient is resting comfortably. I had the lengthy discussion with the family members including his identical twin brother, sister and daughters vital signs Vital Sign Date Time Temp Pulse Resp B/P (MAP) Pulse Ox O2 Delivery O2 Flow Rate FiO2 06/04/25 14:20 155/78 06/04/25 13:00 98.6 94 18 99 98.6 06/04/25 08:00 Room Air* 0 21 Total Intake and Output 06/03/25 06/03/25 06/04/25 15:00 23:00 07:00 Intake Total 50 ml 0 ml 1400 ml Output Total 150 ml 175 ml 350 ml Balance -100 ml -175 ml 1050 ml medications Current Medications Medications Dose Ordered Sig/Perlita Route Start Time Stop Time Status Last Admin Dose Admin Levetiracetam 500 mg BID PO 06/02/25 22:00 06/04/25 08:55 500 MG Hydralazine HCl 25 mg Q8HR PO 06/02/25 22:00 06/04/25 14:20 25 MG Levothyroxine Sodium 100 mcg QAM@0600 PO 06/03/25 06:00 06/03/25 06:18 100 MCG Atorvastatin Calcium 40 mg HS PO 06/02/25 22:00 06/03/25 22:17 40 MG Allopurinol 100 mg DAILY PO 06/03/25 10:00 06/04/25 08:56 100 MG Ceftriaxone Sodium 50 ml @ 100 mls/hr DAILY@09 IV 06/03/25 09:00 06/04/25 08:56 100 MLS/HR Acetaminophen/ Hydrocodone Bitart 1 tab Q4HP PRN PO 06/02/25 19:45 Ondansetron HCl 4 mg Q4HP PRN IV 06/02/25 19:45 Acetaminophen 650 mg Q6HP PRN PO 06/02/25 19:45 Sodium Chloride 1,000 ml @ 75 mls/hr [id number] IV 06/03/25 17:00 06/03/25 18:07 75 MLS/HR Lactulose 30 ml BID PO 06/04/25 15:00 objective Urine is clear in the Jensen catheter drainage system. laboratory and microbiology Laboratory Tests 06/04/25 05:55 06/03/25 04:54 Test 06/03/25 04:54 Range/Units Serum Glucose 89 74-106 mg/dL Problem List Right renal mass suspicious for malignancy History of bladder outlet obstruction secondary to neurogenic bladder History of BPH status post Aquablation prostatectomy on 05/21/2025 Assessment/Plan Persistent gross hematuria- has now resolved Keep Jensen catheter to gravity x1 week and then perform a voiding trial. He will be directed to higher level of care for right radical nephrectomy Plan discussed with: Patient, Spouse, Daughter, Other JESUS WISE MD Jun 04, 2025 16:10
[2025-06-04 16:45] VITALS: BP 152/84; PULSE 117; RESP 18; TEMP 98.4; O2SAT 93
[2025-06-04 21:00] VITALS: BP 135/91; PULSE 128; RESP 19; TEMP 97.8; O2SAT 97
[2025-06-05] VITALS (7 sets, daily range): BP systolic 111–170; BP diastolic 75–94; PULSE 60–109; RESP 18–20; TEMP 97.8–98.6; O2SAT 95–98
[2025-06-05 06:39] LABS: Chloride 105 mmol/L (98-107); Sodium 140 mmol/L (136-145)
[2025-06-05 06:40] LABS: Anion Gap 9 (5-15); Carbon Dioxide 26 mmol/L (20-31)
[2025-06-05 06:45] LABS: BUN/Creatinine Ratio 8.7 (10.0-20.0); Blood Urea Nitrogen 13 mg/dL (9-23); Glucose 105 mg/dL (74-106)
[2025-06-05 06:51] LABS: Calcium 8.4 mg/dL (8.7-10.4); Potassium 3.4 mmol/L (3.5-5.1)
[2025-06-05 07:01] LABS: Hematocrit 33.6 % (41.0-53.0); Hemoglobin 11.1 g/dL (13.5-17.5); Mean Corpuscular Hemoglobin 27.3 pg (28.0-32.0); Mean Corpuscular Volume 82.8 fL (80.0-100.0); Nucleated Red Blood Cells % 0.0 %
[2025-06-05] MEDS: BISACODYL 10 MG RECT SUPP PR ONE (09:14)
--- NOTE | 2025-06-05 09:50 | DVHPN2 ---
Subjective Patient denies any symptoms at this time. Reviewed: Care Plan, H&P, Labs, Medications Changes from previous H/P or p: No Changes General: Per HPI Objective Vitals Vital Signs Date Time Temp Pulse Resp B/P (MAP) Pulse Ox O2 Delivery O2 Flow Rate FiO2 06/05/25 08:00 102 Room Air* 0 21 06/05/25 06:07 151/95 06/05/25 05:00 97.8 19 98 97.8 Intake/Output Intake and Output 06/05/25 07:00 Intake Total 1330 ml Output Total 1400 ml Balance -70 ml Intake Oral 980 ml IV Total 350 ml Output Urine Total 1400 ml General Appearance: Alert, Oriented X3, Cooperative, No acute distress HEENT: Atraumatic, PERRLA Lungs: Clear to auscultation, Normal air movement Cardiovascular: Normal S1, Normal S2 Abdomen: Normal bowel sounds, Soft, No tenderness, No hepatospenomegaly, No masses Genitourinary: Other (Lakhani catheter continues to have hematuria) Musculoskeletal: Normal sensory function, Normal motor function Neuro: Normal gait, Normal speech Skin: Cyanosis, Dry, Intact Psych/Mental Status: Mental status NL, Mood NL Medications Current Medications Medications Dose Ordered Sig/Perlita Route Start Time Stop Time Status Last Admin Dose Admin Levetiracetam 500 mg BID PO 06/02/25 22:00 06/05/25 09:15 500 MG Hydralazine HCl 25 mg Q8HR PO 06/02/25 22:00 06/05/25 06:07 25 MG Levothyroxine Sodium 100 mcg QAM@0600 PO 06/03/25 06:00 06/05/25 06:07 100 MCG Atorvastatin Calcium 40 mg HS PO 06/02/25 22:00 06/04/25 22:37 40 MG Allopurinol 100 mg DAILY PO 06/03/25 10:00 06/05/25 09:15 100 MG Ceftriaxone Sodium 50 ml @ 100 mls/hr DAILY@09 IV 06/03/25 09:00 06/05/25 09:14 100 MLS/HR Acetaminophen/ Hydrocodone Bitart 1 tab Q4HP PRN PO 06/02/25 19:45 Ondansetron HCl 4 mg Q4HP PRN IV 06/02/25 19:45 Acetaminophen 650 mg Q6HP PRN PO 06/02/25 19:45 Lactulose 30 ml BID PO 06/04/25 15:00 06/05/25 09:14 30 ML Laboratory Results Laboratory Tests 06/05/25 05:12 Chemistry Test 06/05/25 05:12 Calcium Level 8.4 mg/dL (8.7-10.4) L Urinalysis Test 06/02/25 14:08 Urine Color Light-red (Yellow) Urine Clarity Turbid (Clear) H Urine pH 6.0 (5.0-9.0) Urine Specific [place] 1.006 (1.001-1.035) Urine Protein Trace (Negative) H Urine Ketones Negative (Negative) Urine Blood 3+ /uL (Negative) H Urine Nitrite Negative (Negative) Urine Bilirubin Negative (Negative) Urine Urobilinogen Normal mg/dL (Negative) Urine Leukocyte Esterase 3+ /uL (Negative) Urine RBC 4941 /hpf (0 - 3) Urine Microscopic WBC 63 /HPF (0-3) H Urine Squamous Epithelial Cells None seen /hpf (<5) Urine Bacteria Few /hpf (None Seen) H Urine Mucus Few (None Seen) Urine Glucose Normal mg/dL (Normal) Microbiology Microbiology Date/Time Source Procedure Growth Status 06/02/25 14:08 Voided Urine Urine Culture - Preliminary Resulted Labs and/or images reviewed: Labs reviewed by me, Image(s) reviewed by me Assessment/Plan Assessment/Plan Impression: -hematuria -complicated cystitis -recent Aquablation prostatectomy -? Right renal cell carcinoma -obesity -primary hypertension -history of CVA with craniotomy -acute kidney injury, vasomotor nephropathy Plan: -events: hematuria resolved. Noted bleeding around Lakhani catheter site. Continues to be constipated. Discussion made with family by Dr. Gomez and by myself regarding plan of care for renal cell carcinoma. Patient will have follow up as an outpatient for treatment options for renal cell carcinoma -check ESR, CRP, LDH -potassium replacement -continue IV hydration -antibiotic therapy with Rocephin -bowel regimen -PUD prophylaxis, SCD -repeat labs in a.m. Total time spent with patient discussing and formulating plan of care: 35 minutes. This medical document was created using an electronic medical record system with [employer] system. Although this document has been carefully reviewed, there may still be some phonetic and typographical errors. These areas are purely typographical due to imperfections of the software programs, and do not reflect any compromise in the patient's medical care. Plan discussed with: Patient, Other (RN) My Orders Orders - RHODA CAGLE NP Procedure Category Date Status Time Renal DIET 06/04/25 Transmitted Standard(2gna,3gk,Lopho) Lunch Lactulose Oral PHA 06/04/25 In Process 15:00 Sod Chl 0.9%/ Kcl PHA 06/05/25 Logged [id number] 09:30 Date of Service: Jun 05, 2025 Billing Provider: RHODA CAGLE NP Common Visit Codes: [id number] INP/OBS CARE(HIGH) RHODA CAGLE NP Jun 05, 2025 09:49
[2025-06-05] MEDS: SOD CHL 0.9%/ KCL 40MEQ 1,000 ML IV ONE (13:54)
[2025-06-06 01:00] VITALS: BP 150/92; PULSE 105; RESP 19; TEMP 98.8; O2SAT 98
[2025-06-06 05:00] VITALS: BP 145/85; PULSE 99; RESP 20; TEMP 99.2; O2SAT 97
[2025-06-06 09:12] VITALS: BP 141/90; PULSE 97; RESP 15; TEMP 99; O2SAT 97
--- NOTE | 2025-06-06 11:03 | DVHDS2 ---
Discharge Summary Date of Admission Jun 02, 2025 at 19:42 Date of Discharge: Jun 06, 2025 Admitting Diagnosis Hematuria, complicated UTI Labs/Diagnostic Data: Laboratory Results Test 06/05/25 05:12 06/03/25 06:49 06/03/25 04:54 06/02/25 16:40 White Blood Count 12.2 10^3/uL (4.4-10.8) Red Blood Count 4.05 10^6/uL (4.5-5.90) Hemoglobin 11.1 g/dL (13.5-17.5) Hematocrit 33.6 % (41.0-53.0) Mean Corpuscular Volume 82.8 fL (80.0-100.0) Mean Corpuscular Hemoglobin 27.3 pg (28.0-32.0) Mean Corpuscular Hemoglobin Concent 33.0 g/dL (32.0-36.0) Red Cell Distribution Width 16.3 % (11.8-14.3) Platelet Count 164 10^3/uL (140-450) Mean Platelet Volume 9.3 fL (6.9-10.8) Neutrophils (%) (Auto) 80.2 % (37.0-80.0) Lymphocytes (%) (Auto) 13.0 % (10.0-50.0) Monocytes (%) (Auto) 6.2 % (0.0-12.0) Eosinophils (%) (Auto) 0.4 % (0.0-7.0) Basophils (%) (Auto) 0.2 % (0.0-2.0) Neutrophils # (Auto) 9.8 10 ^3/uL (1.6-8.6) Lymphocytes # (Auto) 1.6 10 ^3/uL (0.4-5.4) Monocytes # (Auto) 0.8 10 ^3/uL (0-1.3) Eosinophils # (Auto) 0.1 10 ^3/uL (0-0.8) Basophils # (Auto) 0 10 ^3/uL (0-0.2) Nucleated Red Blood Cells 0.0 % Sodium Level 140 mmol/L (136-145) Potassium Level 3.4 mmol/L (3.5-5.1) Chloride Level 105 mmol/L (98-107) Carbon Dioxide Level 26 mmol/L (20-31) Anion Gap 9 (5-15) Blood Urea Nitrogen 13 mg/dL (9-23) Creatinine 1.50 mg/dL (0.700-1.30) Glomerular Filtration Rate Calc 54 mL/min (>90) BUN/Creatinine Ratio 8.7 (10.0-20.0) Serum Glucose 105 mg/dL (74-106) Calcium Level 8.4 mg/dL (8.7-10.4) Erythrocyte Sedimentation Rate 37 mm/hr (0-20) Lactate Dehydrogenase 268 U/L (120-246) C-Reactive Protein High Sensitivity 1.39 mg/dL (<1.0) Prothrombin Time 11.3 sec (9.3-11.8) Prothrombin Time INR 1.07 (0.9-1.15) Activated Partial Thromboplast Time 32.3 SEC (24.5-34.5) Test 06/02/25 14:50 06/02/25 14:08 Troponin I High Sensitivity 8 ng/L (</=54) Urine Color Light-red (Yellow) Urine Clarity Turbid (Clear) Urine pH 6.0 (5.0-9.0) Urine Specific [place] 1.006 (1.001-1.035) Urine Protein Trace (Negative) Urine Ketones Negative (Negative) Urine Blood 3+ /uL (Negative) Urine Nitrite Negative (Negative) Urine Bilirubin Negative (Negative) Urine Urobilinogen Normal mg/dL (Negative) Urine Leukocyte Esterase 3+ /uL (Negative) Urine RBC 4941 /hpf (0 - 3) Urine Microscopic WBC 63 /HPF (0-3) Urine Squamous Epithelial Cells None seen /hpf (<5) Urine Bacteria Few /hpf (None Seen) Urine Mucus Few (None Seen) Urine Glucose Normal mg/dL (Normal) Other Laboratory Tests 06/05/25 05:12 Brief Hx & Hospital Course: History of Present Illness 59-year-old male presents for evaluation of bloody urine. 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 He reports a one day history of noticing blood in his urine. He reports undergoing prostate surgery on 05/21/2025. Reports increased weakness with fatigue. Patient is currently on Eliquis. No chest pain or palpitations. Course of hospitalization: Patient has hematuria improved with IV hydration, cystoscopy with fulguration was held. Discussion was made with family by myself and urologist, Dr. Gomez regarding posterior right renal cell mass. Patient will have follow up as an outpatient for further treatment regarding renal cell mass. Patient had bowel regimen with positive BM. IV hydration improved patient's mentation. Patient will have repeat labs done today, with plans for discharge today, with follow up with PCP and as mentioned urologist. He will be continued on antibiotic therapy with ciprofloxacin 500 mg p.o. b.i.d. for seven days. He will continue all other previous home medications. Patient will be provided lactulose 30 mL as needed daily for signs of constipation. Patient was agreeable with discharge plan. All questions answered. Physical examination General: Alert and Oriented x3. No acute distress. Well-nourished. Eyes: EOMI. Anicteric. HENT: Moist mucous membranes. Lungs: Clear to auscultation bilaterally. No accessory muscle use. Cardiovascular: Regular rate and rhythm. No murmur. No JVD. Abdomen: Soft, non-tender and non-distended. No palpable masses. Extremities: No edema. Non-tender. Skin: No rashes or lesions. Warm. Neurologic: No focal neurological deficits. CN II-XII grossly intact, but not individually tested. Psychiatric: Cooperative. Appropriate mood and affect. Total time spent with patient discussing and formulating plan of care: 35 minutes. This medical document was created using an electronic medical record system with [employer] dictation system. Although this document has been carefully reviewed, there may still be some phonetic and typographical errors. These areas are purely typographical due to imperfections of the software programs, and do not reflect any compromise in the patient's medical care. Consults/Reason for consult Urology: Hematuria, right renal cell mass Condition at Discharge: Fair Final Diagnosis/Problems List Gross hematuria, status post prostatectomy Secondary diagnosis: -hematuria -complicated cystitis -recent Aquablation prostatectomy -? Right renal cell carcinoma -obesity -primary hypertension -history of CVA with craniotomy -acute kidney injury, vasomotor nephropathy Discharge Disposition: Home Discharge Instruct/Medications Diet: Cardiac 2g Na,low cholest Activity: No Restrictions, As Tolerated Follow Up/Referral: Follow up with Dr. Gomez, urologist in 2-3 weeks Follow up with PCP in 1-2 weeks Medications: Continue all previous home medications Ciprofloxacin 500 mg p.o. b.i.d. for seven days Lactulose 30 mL prn daily as needed for constipation x2 days Scheduled Albuterol Sulfate (Albuterol Sulfate), 1 VIAL NEB Q4HPRN, (Reported) Amlodipine Besylate (Amlodipine Besylate), 10 MG PO DAILY, (Reported) Apixaban Base (Eliquis), 25 MG PO BID, (Reported) Apixaban Base (Eliquis), 2.5 MG PO BID, (Reported) Atenolol (Atenolol), 50 MG PO DAILY, (Reported) Benazepril Hcl (Benazepril Hcl), 20 MG PO DAILY, (Reported) Cholecalciferol (Vitamin D3), 350 MG PO DAILY, (Reported) Clonidine Hydrochloride (Clonidine Hcl), 0.2 MG PO QWEEKLY, (Reported) Famotidine (Pepcid Tablet), 40 TAB PO BID, (Reported) Folic Acid (Folic Acid), 1 MG PO DAILY, (Reported) Hydralazine Hcl (Hydralazine Hcl), 25 MG PO TID, (Reported) Hydrochlorothiazide (Hydrochlorothiazide), 1 CAP PO DAILY, (Reported) Levothyroxine Sodium (Synthroid Tablet), 1 TAB PO DAILY, (Reported) Magnesium Oxide (Magnesium Oxide), 1 TAB PO DAILY, (Reported) Miscellaneous Medications Albuterol Sulfate (Ventolin Mdi), 90 MCG IN, (Reported) Budesonide-Formoterol Fumarate (Budesonide/Formoterol Fum 160-4.5 Mcg/Act), 1 AER IN, (Reported) Docusate Sodium (Colace), 100 MG PO, (Reported) Lactulose (Lactulose), 10 GM PO, (Reported) Levetiracetam (Keppra), 500 MG PO, (Reported) 36 Discharge Statement: "Patient was advised to return to the ER or call 911 if any headaches, dizziness, shortness of breath, chest pain, abdominal pain, bleeding, fevers, or worsening of medical condition. Patient was counseled about treatment plan, medications, possible side effects, patientverbalized understanding. All questions were answered to the best of my ability. This discharge took greater then 30 minutes in planning, reviewing documentation, counseling the patient, and discussing with other team members." ASSESSMENT ASSESSMENT Assessment Gross hematuria, status post prostatectomy Date of Service: Jun 06, 2025 Billing Provider: RHODA CAGLE NP Common Visit Codes: 41045-DCA/OBS DISCH DAY >30min RHODA CAGLE NP Jun 06, 2025 11:03
[2025-06-06] MEDS ORDERED: CIPR500T4 PO (11:04)
[2025-06-06] MEDS ORDERED: LACT10SO3 PO (11:04)
[2025-06-06 11:33] LABS: Hematocrit 33.1 % (41.0-53.0); Hemoglobin 10.8 g/dL (13.5-17.5); Mean Corpuscular Hemoglobin 27.0 pg (28.0-32.0); Mean Corpuscular Volume 82.4 fL (80.0-100.0); Nucleated Red Blood Cells % 0.0 %
[2025-06-06 11:41] LABS: Sodium 141 mmol/L (136-145)
[2025-06-06 11:42] LABS: Anion Gap 10 (5-15); Carbon Dioxide 24 mmol/L (20-31)
[2025-06-06 11:47] LABS: BUN/Creatinine Ratio 8.1 (10.0-20.0); Blood Urea Nitrogen 10 mg/dL (9-23)
[2025-06-06 11:50] LABS: Calcium 8.6 mg/dL (8.7-10.4); Chloride 107 mmol/L (98-107); Potassium 3.3 mmol/L (3.5-5.1)
[2025-06-06] MEDS: POTASSIUM EFFERVESENT TAB 25 MEQ PO ONE (12:50)
[2025-06-06 13:00] VITALS: BP 134/88; PULSE 91; RESP 16; TEMP 99; O2SAT 16
[2025-06-06 13:40] LABS: Glucose 120 mg/dL (74-106)
[2025-06-06 16:59] VITALS: BP 144/93; PULSE 91; RESP 14; TEMP 98; O2SAT 98
== END 2025-06-06 19:54 | disposition home or self-care (01) | DRG 463 ==
LOC: ER 13:58 → EDBD 13:58 → OVERFLOW 19:42 → EDBD 19:42 → CENTRAL 06-03 13:44
PROVIDERS: ADMIT Nurse Practitioner Acute Care; ATTEND Nurse Practitioner Acute Care
DX: N30.01 Acute cystitis with hematuria (principal); N17.0 Acute kidney failure with tubular necrosis; I69.359 Hemiplegia and hemiparesis following cerebral infarction affecting unspecified side; C64.1 Malignant neoplasm of right kidney, except renal pelvis; N28.89 Other specified disorders of kidney and ureter; E66.9 Obesity, unspecified; Z68.31 Body mass index [BMI] 31.0-31.9, adult; I10 Essential (primary) hypertension; Z79.01 Long term (current) use of anticoagulants; Z88.0 Allergy status to penicillin; Z90.5 Acquired absence of kidney; Z90.79 Acquired absence of other genital organ(s)
CPT/HCPCS: 36415; 71045; 74176; 80048; 81001; 83615; 84484; 85014; 85018; 85025; 85610; 85652; 85730; 86141; 86850; 86900; 86901; 87086; 96365; G0378